=== PATIENT | female | born 1990 | race Caucasian/White ===

== ENCOUNTER 2024-09-23 16:48 | Emergency (ER) | payer SELFPAY ==
[~2024-09-23] VITALS: Ht 165.1 cm; Wt 161.3 kg
[~2024-09-23 16:48] MED LIST: CLARITIN10 MG PO; MEDROL DOSEPAK4 MG PO
[2024-09-23] MEDS ORDERED: ATARAX,VISTARIL50 MG PO (17:03)
[2024-09-23] MEDS ORDERED: MINIPRESS2 M1 PO (17:04)
[2024-09-23] MEDS ORDERED: TRAZODONE150 MG PO (17:04)
[2024-09-23] MEDS ORDERED: ESCITALOPRAM OX20 MG PO (17:04)
[2024-09-23] MEDS ORDERED: QUETIAPINE FUM100 M3 PO (17:04)
[2024-09-23] MEDS ORDERED: AMPHETAMINE SAL15 M1 PO (17:05)
== END 2024-09-23 18:33 | disposition home or self-care (01) ==
LOC: ED 16:48
DX: S83.92XA Sprain of unspecified site of left knee, initial encounter (principal); M25.462 Effusion, left knee; X50.1XXA Overexertion from prolonged static or awkward postures, initial encounter; Y93.E9 Activity, other interior property and clothing maintenance; Y92.89 Other specified places as the place of occurrence of the external cause; Y99.8 Other external cause status